=== PATIENT | female | born 1985 | race Caucasian/White ===

== ENCOUNTER → 2017-01-21 | Outpatient (REF) | payer OTHER ==
[~2017-01-21] MED LIST: ACET50TA PO; MOTR200T44 PO; RANI15TA PO; VITAPRTA PO
== END ==
LOC: M LAB REF 09:47
PROVIDERS: ATTEND Physician Assistant Surgical
DX: J02.9 Acute pharyngitis, unspecified (principal)

== ENCOUNTER → 2017-07-30 | Outpatient (REF) | payer OTHER ==
[2017-07-30 13:50] LABS: FERRITIN 15 NG/ML (8-252); IRON (FE) 21 UG/DL (50-170); PERCENT SATURATION 5.3 % (13.2-45.0); TOTAL IRON BINDING CAPACITY 393 UG/DL (250-450)
== END ==
LOC: M LAB REF 12:47
DX: D50.9 Iron deficiency anemia, unspecified (principal)
CPT/HCPCS: 83550

== ENCOUNTER → 2017-10-11 | Outpatient (REF) | payer OTHER ==
[2017-10-11 18:57] LABS: FERRITIN 38 NG/ML (8-252); IRON (FE) 56 UG/DL (50-170); PERCENT SATURATION 16.1 % (13.2-45.0); TOTAL IRON BINDING CAPACITY 348 UG/DL (250-450)
== END ==
LOC: M LAB REF 17:20
DX: D50.9 Iron deficiency anemia, unspecified (principal)

== ENCOUNTER → 2018-04-03 | Outpatient (REF) | payer OTHER ==
[~2018-04-03] MED LIST changes: -ACET50TA PO; +MAPA500T2 PO
[2018-04-03 14:14] LABS: PERCENT SATURATION 14.6 % (13.2-45.0)
== END ==
LOC: M LAB REF 13:18
PROVIDERS: ATTEND Internal Medicine
DX: D50.9 Iron deficiency anemia, unspecified (principal)

== ENCOUNTER → 2018-10-16 | Outpatient (REF) | payer OTHER ==
[2018-10-16 13:49] LABS: PERCENT SATURATION 15.2 % (13.2-45.0)
== END ==
LOC: M LAB REF 12:57
PROVIDERS: ATTEND Internal Medicine
DX: D50.9 Iron deficiency anemia, unspecified (principal)

== ENCOUNTER 2019-03-07 15:09 | Emergency (ER) | payer OTHER ==
[~2019-03-07] VITALS: Ht 162.6 cm; Wt 139.9 kg
[2019-03-07 15:09] VITALS: BP 104/53
[2019-03-07] MEDS ORDERED: ALLE180T33 PO (17:25)
[2019-03-07] MEDS ORDERED: CITA20TA6 PO (17:25)
[2019-03-07] MEDS ORDERED: CITA10TA5 PO (17:25)
[2019-03-07 17:53] LABS: HEMATOCRIT 40.9 % (36.0-47.0); HEMOGLOBIN 12.5 g/dl (12.0-15.5); MEAN CORPUSCULAR HEMOGLOBIN 25.3 pg (27.0-33.0); MEAN CORPUSCULAR HGB CONC 30.6 g/dl (32.0-36.5); MEAN CORPUSCULAR VOLUME 82.6 fl (80.0-96.0); PLATELET COUNT, AUTOMATED 376 10^3/uL (150-450); RED BLOOD COUNT 4.95 10^6/uL (4.00-5.40); WHITE BLOOD COUNT 14.8 10^3/uL (4.0-10.0)
[2019-03-07] MEDS ORDERED: BACT800T5 PO (18:13)
== END 2019-03-07 18:46 | disposition home or self-care (01) ==
LOC: M ED 15:09
DX: L02.215 Cutaneous abscess of perineum (principal); J30.2 Other seasonal allergic rhinitis; F41.9 Anxiety disorder, unspecified; Z87.442 Personal history of urinary calculi; Z88.1 Allergy status to other antibiotic agents; Z79.899 Other long term (current) drug therapy

== ENCOUNTER → 2019-04-23 | Outpatient (REF) | payer OTHER ==
[~2019-04-23] MED LIST changes: +ALLE180T33 PO; +BACT800T5 PO; +CITA10TA5 PO; +CITA20TA6 PO
[2019-04-23 14:49] LABS: PERCENT SATURATION 10.6 % (13.2-45.0)
== END ==
LOC: M LAB REF 12:54
PROVIDERS: ATTEND Internal Medicine
DX: D50.9 Iron deficiency anemia, unspecified (principal)

== ENCOUNTER → 2019-11-10 | Outpatient (REF) | payer OTHER ==
[2019-11-10 13:23] LABS: PERCENT SATURATION 9.6 % (13.2-45.0)
== END ==
LOC: M LAB REF 11:59
PROVIDERS: ATTEND Internal Medicine
DX: D50.9 Iron deficiency anemia, unspecified (principal)

== ENCOUNTER → 2020-05-10 | Outpatient (REF) | payer OTHER ==
[2020-05-10 18:34] LABS: PERCENT SATURATION 9.9 % (13.2-45.0)
== END ==
LOC: M LAB REF 16:17
PROVIDERS: ATTEND Internal Medicine
DX: D50.9 Iron deficiency anemia, unspecified (principal)

== ENCOUNTER → 2021-01-03 | Outpatient (REF) | payer OTHER ==
[2021-01-03 17:10] LABS: PERCENT SATURATION 10.4 % (13.2-45.0)
== END ==
LOC: M LAB REF 16:45
PROVIDERS: ATTEND Internal Medicine
DX: D50.9 Iron deficiency anemia, unspecified (principal)

== ENCOUNTER → 2021-07-04 | Outpatient (REF) | payer OTHER ==
[~2021-07-04] MED LIST changes: -CITA10TA5 PO; +CITA10TA7 PO
[2021-07-04 17:24] LABS: PERCENT SATURATION 12.2 % (13.2-45.0)
== END ==
LOC: M LAB REF 16:23
PROVIDERS: ATTEND Internal Medicine
DX: D50.9 Iron deficiency anemia, unspecified (principal)

== ENCOUNTER 2021-12-29 17:18 | Emergency (ER) | payer OTHER ==
[~2021-12-29] VITALS: Ht 162.6 cm; Wt 143.4 kg
[2021-12-29] MEDS ORDERED: IRON325T2 PO (17:26)
[2021-12-29 18:35] LABS: BASO # 0.1 10^3/uL (0.0-0.2); BASO % 0.6 % (0.0-1.0); EOS # 0.6 10^3/uL (0.0-0.5); EOS % 4.5 % (0.0-3.0); HEMATOCRIT 40.9 % (36.0-47.0); LYMPH # 4.6 10^3/uL (1.5-5.0); LYMPH % 32.8 % (24.0-44.0); MEAN CORPUSCULAR HEMOGLOBIN 26.6 pg (27.0-33.0); MEAN CORPUSCULAR HGB CONC 31.8 g/dl (32.0-36.5); MEAN CORPUSCULAR VOLUME 83.6 fl (80.0-96.0); MONO # 0.7 10^3/uL (0.0-0.8); MONO % 4.8 % (2.0-8.0); NEUTROPHILS % 56.7 % (36.0-66.0); PLATELET COUNT, AUTOMATED 473 10^3/uL (150-450); RED BLOOD COUNT 4.89 10^6/uL (4.00-5.40); WHITE BLOOD COUNT 14.1 10^3/uL (4.0-10.0)
[2021-12-29] MEDS ORDERED: NS 1,000 ML IV ONE (18:40)
[2021-12-29 19:09] LABS: INR 0.96
[2021-12-29 19:10] LABS: PARTIAL THROMBOPLASTIN TIME 27.5 SECONDS (24.8-34.2)
[2021-12-29 19:19] LABS: ALBUMIN 3.6 GM/DL (3.2-5.2); ALT/SGPT 20 U/L (12-78); BILIRUBIN,TOTAL 0.5 MG/DL (0.2-1.0); BLOOD UREA NITROGEN 8 MG/DL (7-18); CALCIUM LEVEL 8.9 MG/DL (8.5-10.1); CARBON DIOXIDE LEVEL 28 MEQ/L (21-32); CHLORIDE LEVEL 104 MEQ/L (98-107); CREATININE FOR GFR 0.74 MG/DL (0.55-1.30); GLOMERULAR FILTRATION RATE > 60.0 (>60); GLUCOSE, FASTING 83 MG/DL (70-100); POTASSIUM SERUM 3.9 MEQ/L (3.5-5.1); SODIUM LEVEL 138 MEQ/L (136-145); TOTAL PROTEIN 7.6 GM/DL (6.4-8.2)
[2021-12-29 19:25] LABS: CK-MB VALUE MASS < 1.0 NG/ML (<3.6); CPK CREATINE PHOSPHOKINASE 59 U/L (26-192); MB/CK RELATIVE INDEX 1.69 (< OR =4)
[2021-12-29 19:27] LABS: FREE T4 1.07 NG/DL (0.76-1.46); MAGNESIUM LEVEL 2.6 MG/DL (1.8-2.4); THYROID STIMULATING HORMONE 3.25 uIU/ML (0.358-3.740)
[2021-12-29 19:31] LABS: AMPHETAMINES LEVEL URINE NEGATIVE (NEGATIVE); BARBITURATES URINE NEGATIVE (NEGATIVE); BENZODIAZEPINES URINE NEGATIVE (NEGATIVE); CANNABINOIDS URINE POSITIVE (NEGATIVE); COCAINE METABOLITE URINE NEGATIVE (NEGATIVE); METHADONE URINE NEGATIVE (NEGATIVE); OPIATES URINE NEGATIVE (NEGATIVE); PHENCYCLIDINE URINE NEGATIVE (NEGATIVE)
[2021-12-29 20:49] LABS: D-DIMER QUANT < 270 ng/ml (<500)
[2021-12-29 22:18] VITALS: BP 126/61
== END 2021-12-29 23:03 | disposition home or self-care (01) ==
LOC: M ED 17:18
DX: R55 Syncope and collapse (principal); I45.81 Long QT syndrome; R00.1 Bradycardia, unspecified; M54.30 Sciatica, unspecified side; Z90.49 Acquired absence of other specified parts of digestive tract; Z88.1 Allergy status to other antibiotic agents; Z79.899 Other long term (current) drug therapy

== ENCOUNTER → 2022-01-20 | Outpatient (REF) | payer OTHER ==
[~2022-01-20] MED LIST changes: +IRON325T2 PO
[2022-01-20 13:47] LABS: PERCENT SATURATION 8.6 % (13.2-45.0)
== END ==
LOC: M LAB REF 12:07
PROVIDERS: ATTEND Internal Medicine
DX: D50.9 Iron deficiency anemia, unspecified (principal)

== ENCOUNTER → 2022-06-26 | Outpatient (REF) | payer OTHER ==
[2022-06-26 15:43] LABS: PERCENT SATURATION 10.8 % (13.2-45.0)
== END ==
LOC: M LAB REF 12:39
PROVIDERS: ATTEND Internal Medicine
DX: D50.9 Iron deficiency anemia, unspecified (principal)

== ENCOUNTER → 2023-01-23 | Outpatient (REF) | payer OTHER ==
[2023-01-23 16:42] LABS: PERCENT SATURATION 5.5 % (13.2-45.0)
[2023-01-23 16:45] LABS: FERRITIN 37.2 NG/ML (7.3-270.7)
== END ==
LOC: M LAB REF 16:11
PROVIDERS: ATTEND Internal Medicine
DX: D50.9 Iron deficiency anemia, unspecified (principal)

== ENCOUNTER 2023-04-02 10:22 | Day surgery (SDC) | payer OTHER ==
[~2023-04-02] VITALS: Ht 162.6 cm; Wt 147.4 kg
[~2023-04-02 10:22] MED LIST changes: +B-12100010 PO; +CALC500T68 PO; +NS 1,000 ML IV ONE; +VITA1CHW7 PO; +VITMTA PO
[2023-04-02 10:43] VITALS: TEMP 98
[2023-04-02] MEDS ORDERED: fentaNYL 100 MCG/2 ML INJECTION As Ordered ONE (12:01)
[2023-04-02] MEDS ORDERED: propofoL 200 MG/20 ML VIAL As Ordered ONE ×2 (12:01→13:03)
[2023-04-02] MEDS ORDERED: LIDOCAINE 2% 100MG/5ML SDV (FOR ANES.) As Ordered ONE (12:01)
[2023-04-02 13:32] VITALS: BP 126/70; O2SAT 100
== END 2023-04-02 13:38 | disposition home or self-care (01) ==
LOC: M SDC 10:22
PROVIDERS: ATTEND Internal Medicine Gastroenterology
DX: D50.9 Iron deficiency anemia, unspecified (principal); K21.9 Gastro-esophageal reflux disease without esophagitis; R94.31 Abnormal electrocardiogram [ECG] [EKG]; F41.9 Anxiety disorder, unspecified; F32.A Depression, unspecified; F43.10 Post-traumatic stress disorder, unspecified; Z79.899 Other long term (current) drug therapy; Z88.1 Allergy status to other antibiotic agents
CPT/HCPCS: 43239; 45378; 88305; J3010

== ENCOUNTER → 2023-05-01 | Outpatient (REF) | payer OTHER ==
[~2023-05-01] MED LIST changes: -NS 1,000 ML IV ONE
[2023-05-01 18:51] LABS: PERCENT SATURATION 14.3 % (13.2-45.0)
[2023-05-01 18:54] LABS: FERRITIN 30.6 NG/ML (7.3-270.7)
== END ==
LOC: M LAB REF 16:27
PROVIDERS: ATTEND Internal Medicine
DX: D50.9 Iron deficiency anemia, unspecified (principal); E66.01 Morbid (severe) obesity due to excess calories; Z68.43 Body mass index [BMI] 50.0-59.9, adult

== ENCOUNTER 2023-07-24 02:29 | Emergency (ER) | payer OTHER ==
[2023-07-24 03:09] LABS: BASO # 0.1 10^3/uL (0.0-0.2); BASO % 0.5 % (0.0-1.0); EOS # 0.6 10^3/uL (0.0-0.5); HEMATOCRIT 40.2 % (36.0-47.0); HEMOGLOBIN 12.8 g/dl (12.0-15.5); LYMPH # 3.4 10^3/uL (1.5-5.0); LYMPH % 32.4 % (24.0-44.0); MEAN CORPUSCULAR HEMOGLOBIN 26.7 pg (27.0-33.0); MEAN CORPUSCULAR HGB CONC 31.8 g/dl (32.0-36.5); MEAN CORPUSCULAR VOLUME 83.9 fl (80.0-96.0); MONO # 0.8 10^3/uL (0.0-0.8); MONO % 7.3 % (2.0-8.0); NEUTROPHILS # 5.7 10^3/uL (1.5-8.5); NEUTROPHILS % 53.6 % (36.0-66.0); PLATELET COUNT, AUTOMATED 403 10^3/uL (150-450); RED BLOOD COUNT 4.79 10^6/uL (4.00-5.40); WHITE BLOOD COUNT 10.6 10^3/uL (4.0-10.0)
[2023-07-24 03:34] LABS: ALBUMIN 3.6 G/DL (3.2-5.2); ALKALINE PHOSPHATASE 115 U/L (46-116); ALT/SGPT 19 U/L (7.0-40); AST/SGOT 15 U/L (<34); BILIRUBIN,TOTAL 0.4 MG/DL (0.3-1.2); BLOOD UREA NITROGEN 9 MG/DL (9-23); CALCIUM LEVEL 9.3 MG/DL (8.5-10.1); CARBON DIOXIDE LEVEL 25 MMOL/L (20-31); CHLORIDE LEVEL 106 MMOL/L (98-107); CREATININE FOR GFR 0.76 MG/DL (0.55-1.30); GLOMERULAR FILTRATION RATE > 60.0 (>60); GLUCOSE, FASTING 94 MG/DL (60-100); POTASSIUM SERUM 3.7 MMOL/L (3.5-5.1); SODIUM LEVEL 140 MMOL/L (136-145); TOTAL PROTEIN 6.8 G/DL (5.7-8.2)
[2023-07-24 03:46] LABS: HCG, SERUM QUALITATIVE NEGATIVE (NEGATIVE)
[2023-07-24] MEDS ORDERED: NS 1,000 ML IV ONE (05:05)
[2023-07-24] MEDS ORDERED: ONDANSETRON 4MG 2ML VIAL IV ONE (05:05)
[2023-07-24] MEDS ORDERED: KETOROLAC 30 MG/ML 1ML VIAL IV ONE (05:05)
[2023-07-24] MEDS: KETOROLAC 30 MG/ML 1ML VIAL IM ONE (05:40)
[2023-07-24] MEDS ORDERED: KETO10TAB PO (06:11)
[2023-07-24] MEDS ORDERED: FLOM0.4C39 PO (06:11)
[2023-07-24] MEDS ORDERED: ONDA4TAB6 PO (06:11)
[2023-07-24] MEDS ORDERED: LEVO1TAB40 PO (06:17)
[2023-07-24] MEDS: LevoFLOXacin 750 MG TABLET PO ONE (06:21)
[2023-07-24] MEDS: TAMSULOSIN 0.4 MG CAP PO ONE (06:21)
[2023-07-24 06:24] VITALS: BP 143/71; TEMP 98.3; O2SAT 97
== END 2023-07-24 06:27 | disposition home or self-care (01) ==
LOC: M ED 02:29
DX: N39.0 Urinary tract infection, site not specified (principal); N20.0 Calculus of kidney; F32.A Depression, unspecified; M54.30 Sciatica, unspecified side; Z88.1 Allergy status to other antibiotic agents; Z87.442 Personal history of urinary calculi; Z79.2 Long term (current) use of antibiotics; Z79.899 Other long term (current) drug therapy
CPT/HCPCS: 74176; 80053; 81001; 84703; 85025; 87086; 96372; 99283; J1885

== ENCOUNTER → 2024-03-14 | Outpatient (REF) | payer OTHER ==
[~2024-03-14] MED LIST changes: +FLOM0.4C39 PO; +KETO10TAB PO; +LEVO1TAB40 PO; +ONDA-282 PO
[2024-03-14 16:50] LABS: PERCENT SATURATION 11.5 % (13.2-45.0)
[2024-03-14 16:52] LABS: FERRITIN 10.4 NG/ML (7.3-270.7)
== END ==
LOC: M LAB REF 16:10
PROVIDERS: ATTEND Internal Medicine
DX: D50.9 Iron deficiency anemia, unspecified (principal)

== ENCOUNTER → 2024-09-23 | Outpatient (REF) | payer OTHER ==
[~2024-09-23] MED LIST changes: -FLOM0.4C39 PO; +TAMS-18 PO
[2024-09-23 15:32] LABS: IRON (FE) 63.0 UG/DL (50-170); PERCENT SATURATION 15.2 % (13.2-45.0)
== END ==
LOC: M LAB REF 14:39
PROVIDERS: ATTEND Internal Medicine
DX: D50.9 Iron deficiency anemia, unspecified (principal)